=== PATIENT | female | born 1955 | race Caucasian/White ===

== ENCOUNTER → 2017-01-19 | Outpatient (CLI) | payer BC ==
--- NOTE | 2017-01-19 10:29 | BD ---
EXAMINATION TYPE: MG DEXA axial skeleton. DATE OF EXAM: 01/19/2017 9:26 AM COMPARISON: Previous study dated 01/18/2015. CLINICAL HISTORY: osteopenia, breast ca Height: 5'6 1/2 Weight: 183 FRAX RISK QUESTIONS: Alcohol (3 or more units per day): no Family History (Parent hip fracture): no Glucocorticoids (More than 3mos): no (Ex: prednisone, prednisolone, methylprednisolone, dexamethasone, and hydrocortisone). History of Fracture in Adulthood: no Secondary Osteoporosis: 1. Type 1 Diabetes: no 2. Hyperthyroidism: no 3. Menopause before 45: no 4. Malnutrition: no 5. Chronic liver disease: no Rheumatoid Arthritis: no Current Tobacco Use: no RISK FACTORS HISTORY OF: Family History of Osteoporosis: yes Active: no Postmenopausal woman: MEDICATIONS: Additional Medications: Arimidex, blood pressure Additional History: chemo and radiation, 5 years mastectomy EXAM MEASUREMENTS: Bone mineral densitometry was performed using the [employer] [facility]. Bone mineral density as measured about the Lumbar spine is: ----- L1-L4(G/cm2): 1.177 T Score Values are as follows: ----- L2: 0.6 ----- L3: -0.4 ----- L4: -0.1 ----- L1-L4:0.0 Bone mineral density has: Decreased -2.4% since study of: 01/18/2015 Bone mineral density about the R hip (g/cm2): 0.860 Bone mineral density about the L hip (g/cm2): 1.020 T Score values are as follows: -----R Neck: -1.3 -----L Neck: -0.1 -----R Intertrochanter: -2.2 -----L Intertrochanter: -1.3 Bone mineral density has: Increased 0.7% since study of: 01/18/2015 IMPRESSION: Osteopenia (T Score between -2.5 and -1 as noted by T score values: Right hip There is slightly increased risk of fracture and the patient may be considered for treatment. Re-Screen 1-2 years. NOTE: T-SCORE=SD OF THE YOUNG ADULT MEAN.
== END | disposition home or self-care (01) ==
LOC: RADBDWWP 09:08
PROVIDERS: ATTEND Internal Medicine Hematology & Oncology
DX: M85.88 Other specified disorders of bone density and structure, other site (principal); C50.919 Malignant neoplasm of unspecified site of unspecified female breast; Z78.0 Asymptomatic menopausal state
CPT/HCPCS: 77080

== ENCOUNTER → 2018-06-21 | Outpatient (CLI) | payer BC ==
--- NOTE | 2018-06-21 14:40 | BD ---
EXAMINATION TYPE: Axial Bone Density DATE OF EXAM: 06/21/2018 COMPARISON: 2017 CLINICAL HISTORY: osteopenia Height: 5'6 Weight: 174 FRAX RISK QUESTIONS: Secondary Osteoporosis: RISK FACTORS HISTORY OF: Postmenopausal woman: MEDICATIONS: Additional Medications: Arimidex, blood pressure Additional History: breast cancer 2010 EXAM MEASUREMENTS: Bone mineral densitometry was performed using the [employer] [facility]. Bone mineral density as measured about the Lumbar spine is: ----- L1-L4(G/cm2):1.186 T Score Values are as follows: ----- L2: -0.5 ----- L3: 0.2 ----- L4: 0.5 ----- L1-L4: 0.0 Bone mineral density has: Increased 1.5% since study of: 07/22/2017 Bone mineral density about the R hip (g/cm2): 0.908 Bone mineral density about the L hip (g/cm2): 1.005 T Score values are as follows: -----R Neck: -0.9 -----L Neck: -0.2 -----R Total: -1.3 -----L Total: -0.5 Bone mineral density has: Decreased -3.1% since study of: 07/22/2017 IMPRESSION: Osteopenia about the right hip and as such there is increased fracture risk. NOTE: T-SCORE=SD OF THE YOUNG ADULT MEAN.
== END | disposition home or self-care (01) ==
LOC: RADBDWWP 12:35
PROVIDERS: ATTEND Internal Medicine Hematology & Oncology
DX: M85.851 Other specified disorders of bone density and structure, right thigh (principal); C50.919 Malignant neoplasm of unspecified site of unspecified female breast; Z79.890 Hormone replacement therapy
CPT/HCPCS: 77080